=== PATIENT | female | born 1950 | race Caucasian/White ===

== ENCOUNTER 2017-12-07 01:59 | Outpatient (CLI) | payer MEDICARE, MEDICAID, SELFPAY ==
[2017-12-07 14:42] LABS: ALT 26 U/L (12-78); AST 18 U/L (15-37); Alkaline Phosphatase 108 U/L (46-116); Anion Gap 10.1 mmol/L (3-11); BUN 8 mg/dL (7-18); Bilirubin, Total 0.7 mg/dL (0.2-1.0); CO2 28.9 mmol/L (21.0-32.0); CREATININE 0.68 mg/dL (0.55-1.02); Calcium 9.3 mg/dL (8.5-10.1); Chloride 100 mmol/L (98-107); Glucose 83 mg/dL (70-100); Potassium 4.5 mmol/L (3.5-5.1); Sodium 139 mmol/L (136-145); Total Protein 7.3 g/dL (6.4-8.2)
[2017-12-07 15:02] LABS: Cholesterol 179 mg/dL (50-200); HDL Cholesterol 53 mg/dL (40-60); LDL CHOLESTEROL 110 mg/dL (<100); Triglyceride 126 mg/dL (30-150)
== END 2017-12-07 02:19 ==
PROVIDERS: PCP Family Medicine; Visit Provider Family Medicine
DX: E78.5 Hyperlipidemia, unspecified (principal); E03.9 Hypothyroidism, unspecified
CPT/HCPCS: 36415; 80053; 80061; 83721; 84443

== ENCOUNTER 2018-02-06 02:05 | Outpatient (CLI) | payer MEDICARE, MEDICAID, SELFPAY ==
[2018-02-06 11:49] LABS: TSH 1.63 uIU/mL (0.358-3.74)
== END 2018-02-06 02:25 ==
PROVIDERS: PCP Family Medicine; Visit Provider Family Medicine
DX: E03.9 Hypothyroidism, unspecified (principal)
CPT/HCPCS: 36415; 84443

== ENCOUNTER 2018-06-01 09:32 | Emergency (ER) | payer MEDICARE, MEDICAID, SELFPAY ==
[2018-06-01 09:36] VITALS: BP 143/85; PULSE 82; RESP 18; TEMP 36.7; O2SAT 97
[2018-06-01 09:40] VITALS: RESP 18
--- NOTE | 2018-06-01 09:41 | W.ED.GENAD ---
Discharge Plan Disposition Patient Disposition: HOME Condition: Stable Discharge Details Chief Complaint: Dizzy/Sync Clinical Impression: Vertigo, Otitis media Primary Care Provider: Dinorah Santamaria ED Provider: Meron Agosto Home Meds and New Rx's Prescriptions: New clindamycin HCl 300 mg capsule 300 mg PO TID Qty: 21 RF: 0 Continued levothyroxine 88 mcg capsule 88 mcg PO DAILY Qty: 90 RF: 2 pramipexole [Mirapex] 0.5 mg tablet 0.5 mg PO HS Qty: 90 RF: 4 benzonatate [Tessalon Perles] 100 mg capsule 100 mg PO TID PRN (Reason: cough) Qty: 30 RF: 0 ranitidine HCl 300 mg tablet 300 mg PO DAILY Qty: 90 RF: 4 escitalopram oxalate 20 mg tablet 20 mg PO DAILY Qty: 90 RF: 2 Discharge Instructions Instructions: Vertigo (ED), Otitis Media (ED) Additional Instructions: You continue to have a left ear infection, please take clindamycin as prescribed. Even if symptoms improve please please take the entire course. Please take probiotic while on the antibiotics. In regard to your dizziness, please perform the Monique-Daroff maneuvers 3 times a day for the next 3 weeks. Attached is instructions on how to perform this. You should do 5 cycles during each time performing the exercises In regard to your findings in your neurologic exam, you will need follow-up with neurology. An outpatient MRI will be ordered and he will follow-up with Dr. Noland, neurologist. She is advised to begin taking an 81 mg aspirin daily. If you develop headache, visual changes, weakness, change in your speech or other new/worsening symptoms please seek care urgently once again. Should hear from primary care office in regard to the outpatient MRI, if you do not hear from them please call the number listed below Referrals: Dinorah Santamaria MD [Primary Care Provider] - Maddy Roberts MD [ [facility]FF [facility]YSICIAN] - Discharge Data Discharge Date/Time-TO BE ENTERED AT DEPARTURE: 06/01/18 12:21 Medical Decision Making Patient 67-year-old female presenting today with chief complaint of dizziness. She reports that she has had intermittent episodes of dizziness particularly with movement for the past week. Reports that she first noted it when she rolled over in bed. Reports she was treated for a left otitis media by her primary care approximately 2 weeks ago. She reports the discomfort she was experiencing at that time has resolved. Primary care and noted discharge in the ear which the patient states has resolved. She denies any headache, visual changes. States that occasionally she has stomach upset with the episodes of dizziness. Reports that she did increase her Lexapro from 20 mg daily to 30 mg daily and initially had attributed her dizziness to this. Has completely stopped taking the Lexapro since the onset of symptoms. Describes her dizziness as the room spinning. Denies any head trauma. Patient is not an active smoker. No recent travel. No change in other medications recently. On exam, patient appears concerned but no acute distress. She does have fluid noted behind the left eardrum with green discharge in the canal. No perforation in the tympanic membrane is visualized although the lower right side is not visualized. During the Windsor-Hallpike exam, horizontal nystagmus is noted towards the right with associated dizziness experienced by the patient. This resolved shortly after sitting back in an upright position. Also noted on exam was the patient's inability to touch her nose with the right index finger during finger to nose test. She routinely missed going just left of the nose and touching the left cheek. This was normal on the left side. Heel to rivera was normal on both sides, reflexes and strength intact. If any neuro exam is unremarkable. EKG reviewed by myself and Dr. Martini with no acute ischemic findings or other acute abnormalities noted. Patient has normal sinus rhythm with a rate of 75. While the horizontal nystagmus and the patient's symptoms are most consistent with vertigo, the patient having an abnormal finger to nose test has been wanting to evaluate further with imaging. Will obtain a CT and laboratory evaluation. Discussed this plan with the patient is in agreement. Also treat the patient with meclizine for continued dizziness. No shortness of breath, chest pain, EKG changes I have low suspicion for cardiac etiology or pulmonary embolism. Spoke with radiologist who advised that CT of head is negative. I did call back asking about area on posterior right which he advised was typical Laboratory evaluation without significant abnormality. Consulted with Dr. Hernández regarding the patients vertigo and abnormal neuro exam. We discussed CT. She advised that the symptoms are likely not from a stroke but she would advise an outpatient MRI and beginning the patient on a 81mg aspirin. She advised having the patient preform Monique-Daroff exercises three times per day for the next 3 weeks. She advised that this will work for her vertigo over the next 7-10 days. Discussed this with the patient who is in agreement with this plan. she was given strict return precautions. Feels that she is able to do exercises at home. Contacted primary care and advised that MRI would like to be ordered, discussed her recent treatment for an ear infection. Has infection February the patient was treated for an ear infection at which time she was treated with Augmentin. The patient continues to have green discharge and findings consistent with a left otitis media, she will be treated with further antibiotics. As she was previously treated with Augmentin, will use Cipro. Advised probiotic. She will begin ASA. Patient was given education on how to preform home exercises. She was given strict return precuations. film sound coordinator will ensure continued care with outpatient MRI and f/u with neurologist. All of her questions adn concerns were addressed, she is in agreement with this plan. Patient was advised to not drive, reprots that she does not drive at baseline, will not opperatie machinery HPI General Mode of arrival: ambulatory. Date/Time Provider Initiated Documentation: 06/01/18 09:40. Limitations to Documentation: no limitations. Information obtained by: patient, family and RN notes reviewed. History of Present Illness 67 year old F presents to the emergency department with the chief complaint of dizziness, described as severe, Patient started experiencing this week(s) (1) and it has been intermittent. Immobilization improves symptom(s), Movement worsens symptoms . Patient notes no other symptoms.. Patient did receive the following treatments prior to arrival, none Related Data Home Medications Medication Instructions Recorded Confirmed ranitidine 300 mg tablet 300 mg PO DAILY #90 tab-cap 01/30/18 06/01/18 benzonatate 100 mg capsule 100 mg PO TID PRN #30 cap 03/06/18 06/01/18 levothyroxine 88 mcg capsule 88 mcg PO DAILY #90 cap 03/06/18 06/01/18 pramipexole 0.5 mg tablet 0.5 mg PO HS #90 tab 03/06/18 06/01/18 escitalopram 20 mg tablet 20 mg PO DAILY #90 tab-cap 05/30/18 06/01/18 clindamycin HCl 300 mg PO TID #21 cap 06/01/18 Previous Rx's Medication Instructions Recorded ranitidine 300 mg tablet 300 mg PO DAILY #90 tab-cap 01/30/18 benzonatate 100 mg capsule 100 mg PO TID PRN #30 cap 03/06/18 levothyroxine 88 mcg capsule 88 mcg PO DAILY #90 cap 03/06/18 pramipexole 0.5 mg tablet 0.5 mg PO HS #90 tab 03/06/18 escitalopram 20 mg tablet 20 mg PO DAILY #90 tab-cap 05/30/18 clindamycin HCl 300 mg PO TID #21 cap 06/01/18 Allergies Allergy/AdvReac Type Severity Reaction Status Date / Time No Known Allergies Allergy Unverified 06/01/18 09:52 General Stated Complaint: Dizzy/Sync DULCE: 3 Review of Systems Constitutional Reports as per HPI, Denies chills, Denies excessive sweating, Denies fever(s), Denies frequent falls, Denies headache(s), Denies lethargy, Denies poor appetite and Denies weakness Eyes Denies change in vision and Denies loss of vision ENT Reports dizziness, Denies otalgia and Denies headache(s) Cardiovascular Reports as per HPI, Denies chest pain, Denies chest pain at rest, Denies chest pain with activity, Denies dyspnea and Denies dyspnea on exertion Respiratory Reports as per HPI, Denies chest congestion, Denies cough, Denies pain on inspiration, Denies pain with cough, Denies dyspnea, Denies dyspnea on exertion and Denies wheezing Gastrointestinal Reports as per HPI, Denies abdominal pain, Denies diarrhea, Reports nausea (occasionally with dizziness) and Denies vomiting Musculoskeletal Reports as per HPI, Denies back pain and Denies numbness Integumentary/Breasts Reports as per HPI and Denies rash Neurologic Reports as per HPI, Reports dizziness, Denies frequent falls, Denies headache(s), Denies lack of coordination, Denies focal weakness, Denies loss of vision, Denies memory loss, Denies numbness, Reports restless legs, Denies sensory deficit, Denies tremor(s) and Denies weakness Psychiatric Denies memory loss Endocrine Denies excessive sweating Allergic/Immunologic Denies wheezing [facility] Medical History Abnormal CT of the abdomen Chronic alcohol dependence, continuous Diverticulitis Hyperlipidemia Hypothyroidism Weight loss, unintentional Surgical History Colectomy (~2010) Colonoscopy - MAC (09/28/16) Cystoscopy (06/10/16) EGD - MAC (09/28/16) Hernia Repair, Incisional Oophrectomy, Left Tonsillectomy and adenoidectomy Social History Smoking/Tobacco Use Status: Former Tobacco Use Quit Date: 04/18/18 Alcohol Intake: current Alcohol type: beer Drug use: Never Do you feel safe at home: Yes Do you feel safe in your relationship?: Yes Exam Const General: cooperative, healthy appearing, comfortable, no acute distress and well developed Nutritional Appearance: average body habitus and well nourished Orientation: alert, awake and oriented x3 HENMT Head: normal to inspection Ears: hearing grossly normal bilaterally Mouth: moist mucous membranes Eyes General: appearance normal, both eyes and all related structures Visual Ngo: normal visual ngo by confrontation Alignment and Position: alignment normal Periorbital: periorbital findings normal Eyelids: eyelids normal Pupils: PERRL and normal by confrontation EOM: EOM intact bilaterally Chest Chest: normal inspection of the chest, normal palpation of entire chest wall and no crepitus Resp Effort & Inspection: normal respiratory effort, able to speak in complete sentences and no respiratory distress Auscultation: clear to auscultation bilaterally, no rales, no rhonchi and no wheezes Cardio Rate: regular rate Rhythm: regular rhythm Heart Sounds: S1 normal and S2 normal GI Inspection: normal to inspection, no edema and non-distended Palpation: soft, no hepatosplenomegaly, not firm, no guarding, not rigid and nontender Auscultation: normal bowel sounds Skin General skin exam: no rashes or lesions noted Trauma: no lacerations or abrasions Neuro General: alert, awake, oriented x3, gait normal, tone normal, moves all extremities, normal light touch, pain and propioception, no meningeal signs and no focal motor deficits Cranial Nerves: CN's II-XI intact bilaterally Cognition: normal cognition Speech: speech normal Gait: normal gait Motor: muscle tone normal throughout, strength 5/5 throughout, no pronator drift, no movement abnormalities noted and no fasciculations Sensory Exam: no sensory deficits noted DTR's: Rt Triceps: 2+, Lt Triceps: 2+, Rt Biceps: 2+, Lt Biceps: 2+, Rt Patellar: 2+, Lt Patellar: 2+, Rt Ankle: 2+ and Lt Ankle: 2+ Coordination: [id number] test abnormal (patient touches left cheek with right hand, normal on left side), [id number] test normal, Romberg test normal, Does not sway with eyes open and rapid alternating movement UE normal Extrem General: normal to inspection, normal capillary refill, no pedal edema, no calf tenderness and normal gait Psych Appearance: grossly normal and well kempt Mental Status: mental status grossly normal Speech and Movement: speech and movement normal Course Vital Signs Temperature 36.7 C 06/01/18 09:36 Pulse 82 06/01/18 09:36 Respiratory Rate 18 06/01/18 09:36 Blood Pressure 143/85 H 06/01/18 09:36 Pulse Oximetry 97 06/01/18 09:36 Temperature 36.7 C 06/01/18 09:36 Temperature Source Skin 06/01/18 09:36 Pulse 82 06/01/18 09:36 Respiratory Rate 18 06/01/18 09:36 Blood Pressure 143/85 H 06/01/18 09:36 Blood Pressure Position Sitting 06/01/18 09:36 Pulse Oximetry 97 06/01/18 09:36 Oxygen Delivery Method Room Air 06/01/18 09:36 Oxygen Flow Rate 0 06/01/18 09:36 Pain Level 0 06/01/18 09:36
--- NOTE | 2018-06-01 10:02 | ED.GENADUL_ITS ---
Discharge Plan Disposition Patient Disposition: HOME Condition: Stable Discharge Details Chief Complaint: Dizzy/Sync Clinical Impression: Vertigo, Otitis media Primary Care Provider: Dinorah Santamaria ED Provider: Meron Agosto Home Meds and New Rx's Prescriptions: New clindamycin HCl 300 mg capsule 300 mg PO TID Qty: 21 RF: 0 Continued levothyroxine 88 mcg capsule 88 mcg PO DAILY Qty: 90 RF: 2 pramipexole [Mirapex] 0.5 mg tablet 0.5 mg PO HS Qty: 90 RF: 4 benzonatate [Tessalon Perles] 100 mg capsule 100 mg PO TID PRN (Reason: cough) Qty: 30 RF: 0 ranitidine HCl 300 mg tablet 300 mg PO DAILY Qty: 90 RF: 4 escitalopram oxalate 20 mg tablet 20 mg PO DAILY Qty: 90 RF: 2 Discharge Instructions Instructions: Vertigo (ED), Otitis Media (ED) Additional Instructions: You continue to have a left ear infection, please take clindamycin as prescribed. Even if symptoms improve please please take the entire course. Please take probiotic while on the antibiotics. In regard to your dizziness, please perform the Monique-Daroff maneuvers 3 times a day for the next 3 weeks. Attached is instructions on how to perform this. You should do 5 cycles during each time performing the exercises In regard to your findings in your neurologic exam, you will need follow-up with neurology. An outpatient MRI will be ordered and he will follow-up with Dr. Noland, neurologist. She is advised to begin taking an 81 mg aspirin daily. If you develop headache, visual changes, weakness, change in your speech or other new/worsening symptoms please seek care urgently once again. Should hear from primary care office in regard to the outpatient MRI, if you do not hear from them please call the number listed below Referrals: Dinorah Santamaria MD [Primary Care Provider] - Maddy Roberts MD [ [facility]YSICIAN] - Discharge Data Discharge Date/Time-TO BE ENTERED AT DEPARTURE: 06/01/18 12:21 Medical Decision Making Patient 67-year-old female presenting today with chief complaint of dizziness. She reports that she has had intermittent episodes of dizziness particularly with movement for the past week. Reports that she first noted it when she rolled over in bed. Reports she was treated for a left otitis media by her primary care approximately 2 weeks ago. She reports the discomfort she was experiencing at that time has resolved. Primary care and noted discharge in the ear which the patient states has resolved. She denies any headache, visual changes. States that occasionally she has stomach upset with the episodes of dizziness. Reports that she did increase her Lexapro from 20 mg daily to 30 mg daily and initially had attributed her dizziness to this. Has completely stopped taking the Lexapro since the onset of symptoms. Describes her dizziness as the room spinning. Denies any head trauma. Patient is not an active smoker. No recent travel. No change in other medications recently. On exam, patient appears concerned but no acute distress. She does have fluid noted behind the left eardrum with green discharge in the canal. No perforation in the tympanic membrane is visualized although the lower right side is not visualized. During the [place] exam, horizontal nystagmus is noted towards the right with associated dizziness experienced by the patient. This resolved shortly after sitting back in an upright position. Also noted on exam was the patient's inability to touch her nose with the right index finger during finger to nose test. She routinely missed going just left of the nose and touching the left cheek. This was normal on the left side. Heel to rivera was normal on both sides, reflexes and strength intact. If any neuro exam is unremarkable. EKG reviewed by myself and Dr. Martini with no acute ischemic findings or other acute abnormalities noted. Patient has normal sinus rhythm with a rate of 75. While the horizontal nystagmus and the patient's symptoms are most consistent with vertigo, the patient having an abnormal finger to nose test has been wanting to evaluate further with imaging. Will obtain a CT and laboratory evaluation. Discussed this plan with the patient is in agreement. Also treat the patient with meclizine for continued dizziness. No shortness of breath, chest pain, EKG changes I have low suspicion for cardiac etiology or pulmonary embolism. Spoke with radiologist who advised that CT of head is negative. I did call back asking about area on posterior right which he advised was typical Laboratory evaluation without significant abnormality. Consulted with Dr. Hernández regarding the patients vertigo and abnormal neuro exam. We discussed CT. She advised that the symptoms are likely not from a stroke but she would advise an outpatient MRI and beginning the patient on a 81mg aspirin. She advised having the patient preform Monique-Daroff exercises three times per day for the next 3 weeks. She advised that this will work for her vertigo over the next 7-10 days. Discussed this with the patient who is in agreement with this plan. she was given strict return precautions. Feels that she is able to do exercises at home. Contacted primary care and advised that MRI would like to be ordered, discussed her recent treatment for an ear infection. Has infection February the patient was treated for an ear infection at which time she was treated with Augmentin. The patient continues to have green discharge and findings consistent with a left otitis media, she will be treated with further antibiotics. As she was previously treated with Augmentin, will use Cipro. Advised probiotic. She will begin ASA. Patient was given education on how to preform home exercises. She was given strict return precuations. patient day coordinator will ensure continued care with outpatient MRI and f/u with neurologist. All of her questions adn concerns were addressed, she is in agreement with this plan. Patient was advised to not drive, reprots that she does not drive at baseline, will not opperatie machinery HPI General Mode of arrival: ambulatory . Date/Time Provider Initiated Documentation: 06/01/18 09:40 . Limitations to Documentation: no limitations . Information obtained by: patient, family and RN notes reviewed . History of Present Illness 67 year old F presents to the emergency department with the chief complaint of dizziness, described as severe, Patient started experiencing this week(s) (1) and it has been intermittent. Immobilization improves symptom(s), Movement worsens symptoms . Patient notes no other symptoms.. Patient did receive the following treatments prior to arrival, none Related Data Home Medications Medication Instructions Recorded Confirmed ranitidine 300 mg tablet 300 mg PO DAILY #90 tab-cap 01/30/18 06/01/18 benzonatate 100 mg capsule 100 mg PO TID PRN #30 cap 03/06/18 06/01/18 levothyroxine 88 mcg capsule 88 mcg PO DAILY #90 cap 03/06/18 06/01/18 pramipexole 0.5 mg tablet 0.5 mg PO HS #90 tab 03/06/18 06/01/18 escitalopram 20 mg tablet 20 mg PO DAILY #90 tab-cap 05/30/18 06/01/18 clindamycin HCl 300 mg PO TID #21 cap 06/01/18 Previous Rx's Medication Instructions Recorded ranitidine 300 mg tablet 300 mg PO DAILY #90 tab-cap 01/30/18 benzonatate 100 mg capsule 100 mg PO TID PRN #30 cap 03/06/18 levothyroxine 88 mcg capsule 88 mcg PO DAILY #90 cap 03/06/18 pramipexole 0.5 mg tablet 0.5 mg PO HS #90 tab 03/06/18 escitalopram 20 mg tablet 20 mg PO DAILY #90 tab-cap 05/30/18 clindamycin HCl 300 mg PO TID #21 cap 06/01/18 Allergies Allergy/AdvReac Type Severity Reaction Status Date / Time No Known Allergies Allergy Unverified 06/01/18 09:52 General Stated Complaint: Dizzy/Sync DULCE: 3 Review of Systems Constitutional Reports as per HPI, Denies chills, Denies excessive sweating, Denies fever(s), Denies frequent falls, Denies headache(s), Denies lethargy, Denies poor appetite and Denies weakness Eyes Denies change in vision and Denies loss of vision ENT Reports dizziness, Denies otalgia and Denies headache(s) Cardiovascular Reports as per HPI, Denies chest pain, Denies chest pain at rest, Denies chest pain with activity, Denies dyspnea and Denies dyspnea on exertion Respiratory Reports as per HPI, Denies chest congestion, Denies cough, Denies pain on inspiration, Denies pain with cough, Denies dyspnea, Denies dyspnea on exertion and Denies wheezing Gastrointestinal Reports as per HPI, Denies abdominal pain, Denies diarrhea, Reports nausea (occasionally with dizziness) and Denies vomiting Musculoskeletal Reports as per HPI, Denies back pain and Denies numbness Integumentary/Breasts Reports as per HPI and Denies rash Neurologic Reports as per HPI, Reports dizziness, Denies frequent falls, Denies headache(s), Denies lack of coordination, Denies focal weakness, Denies loss of vision, Denies memory loss, Denies numbness, Reports restless legs, Denies sensory deficit, Denies tremor(s) and Denies weakness Psychiatric Denies memory loss Endocrine Denies excessive sweating Allergic/Immunologic Denies wheezing [facility] Medical History Abnormal CT of the abdomen Chronic alcohol dependence, continuous Diverticulitis Hyperlipidemia Hypothyroidism Weight loss, unintentional Surgical History Colectomy (~2010) Colonoscopy - MAC (09/28/16) Cystoscopy (06/10/16) EGD - MAC (09/28/16) Hernia Repair, Incisional Oophrectomy, Left Tonsillectomy and adenoidectomy Social History Smoking/Tobacco Use Status: Former Tobacco Use Quit Date: 04/18/18 Alcohol Intake: current Alcohol type: beer Drug use: Never Do you feel safe at home: Yes Do you feel safe in your relationship?: Yes Exam Const General: cooperative, healthy appearing, comfortable, no acute distress and well developed Nutritional Appearance: average body habitus and well nourished Orientation: alert, awake and oriented x3 HENMT Head: normal to inspection Ears: hearing grossly normal bilaterally Mouth: moist mucous membranes Eyes General: appearance normal, both eyes and all related structures Visual Ngo: normal visual ngo by confrontation Alignment and Position: alignment normal Periorbital: periorbital findings normal Eyelids: eyelids normal Pupils: PERRL and normal by confrontation EOM: EOM intact bilaterally Chest Chest: normal inspection of the chest, normal palpation of entire chest wall and no crepitus Resp Effort & Inspection: normal respiratory effort, able to speak in complete sentences and no respiratory distress Auscultation: clear to auscultation bilaterally, no rales, no rhonchi and no wheezes Cardio Rate: regular rate Rhythm: regular rhythm Heart Sounds: S1 normal and S2 normal GI Inspection: normal to inspection, no edema and non-distended Palpation: soft, no hepatosplenomegaly, not firm, no guarding, not rigid and nontender Auscultation: normal bowel sounds Skin General skin exam: no rashes or lesions noted Trauma: no lacerations or abrasions Neuro General: alert, awake, oriented x3, gait normal, tone normal, moves all extremities, normal light touch, pain and propioception, no meningeal signs and no focal motor deficits Cranial Nerves: CN's II-XI intact bilaterally Cognition: normal cognition Speech: speech normal Gait: normal gait Motor: muscle tone normal throughout, strength 5/5 throughout, no pronator drift, no movement abnormalities noted and no fasciculations Sensory Exam: no sensory deficits noted DTR's: Rt Triceps: 2+, Lt Triceps: 2+, Rt Biceps: 2+, Lt Biceps: 2+, Rt Patellar: 2+, Lt Patellar: 2+, Rt Ankle: 2+ and Lt Ankle: 2+ Coordination: [id number] test abnormal (patient touches left cheek with right hand, normal on left side), [id number] test normal, Romberg test normal, Does not sway with eyes open and rapid alternating movement UE normal Extrem General: normal to inspection, normal capillary refill, no pedal edema, no calf tenderness and normal gait Psych Appearance: grossly normal and well kempt Mental Status: mental status grossly normal Speech and Movement: speech and movement normal Course Vital Signs Temperature 36.7 C 06/01/18 09:36 Pulse 82 06/01/18 09:36 Respiratory Rate 18 06/01/18 09:36 Blood Pressure 143/85 H 06/01/18 09:36 Pulse Oximetry 97 06/01/18 09:36 Temperature 36.7 C 06/01/18 09:36 Temperature Source Skin 06/01/18 09:36 Pulse 82 06/01/18 09:36 Respiratory Rate 18 06/01/18 09:36 Blood Pressure 143/85 H 06/01/18 09:36 Blood Pressure Position Sitting 06/01/18 09:36 Pulse Oximetry 97 06/01/18 09:36 Oxygen Delivery Method Room Air 06/01/18 09:36 Oxygen Flow Rate 0 06/01/18 09:36 Pain Level 0 06/01/18 09:36
[2018-06-01] MEDS: Normal Saline 1,000 ML 150 ML IV (10:40)
[2018-06-01] MEDS: Meclizine 25 MG TAB PO (10:40)
[2018-06-01 10:53] LABS: Abs Immature Grans 0.03 k/cumm (0.0-0.09); Absolute Basophil Count 0.02 k/cumm (0.0-0.2); Absolute Eosinophil Count 0.17 k/cumm (0.0-0.7); Absolute Lymphocyte Count 1.83 k/cumm (1.2-3.4); Absolute Monocyte Count 0.33 k/cumm (0.11-0.7); Absolute Neutrophil Count 2.67 k/cumm (1.2-6.7); Basophils % 0.4; Eosinophils % 3.4; HCT 47.2 % (36.0-46.0); Immature Grans % 0.6; Lymphocytes % 36.2; Mean Corp. HGB Concentration 31.8 g/dL (32.0-36.0); Mean Corpuscular Hemoglobin 28.7 pg (27.0-33.0); Mean Corpuscular Volume 90.4 fL (80-95); Mean Platelet Volume 9.6 fL (8.0-11.0); Monocytes % 6.5; Neutrophils % 52.9; Platelet Count 229 x1000/uL (130-400); RBC 5.22 m/cumm (4.00-5.20); RBC Distribution Width 13.6 % (11.7-14.6); White Blood Cell Count 5.05 k/cumm (4.4-10.8)
--- NOTE | 2018-06-01 11:14 | DI.RAD_ITS ---
SYMPTOMS/DIAGNOSIS: DIZZINESS CRANIAL CT (WITHOUT CONTRAST): A noncontrast cranial CT was performed. The ventricular system is normal in appearance. There is no evidence of an intracranial mass lesion. There is no evidence of a subdural or epidural hematoma. No focal areas of decreased attenuation are seen. CONCLUSION: Normal noncontrast Cranial CT.
[2018-06-01 11:22] LABS: ALT 30 U/L (12-78); AST 18 U/L (15-37); Albumin 3.9 g/dL (3.4-5.0); Alkaline Phosphatase 90 U/L (46-116); Anion Gap 6.9 mmol/L (3-11); BUN 10 mg/dL (7-18); Bilirubin, Total 0.5 mg/dL (0.2-1.0); CO2 31.1 mmol/L (21.0-32.0); CREATININE 0.55 mg/dL (0.55-1.02); Calcium 8.8 mg/dL (8.5-10.1); Chloride 100 mmol/L (98-107); Glucose 85 mg/dL (70-100); Magnesium 2.2 mg/dL (1.8-2.4); Potassium 3.9 mmol/L (3.5-5.1); Sodium 138 mmol/L (136-145); TSH 4.89 uIU/mL (0.358-3.74); Total Protein 7.7 g/dL (6.4-8.2)
[2018-06-01 11:33] LABS: Troponin I < 0.02 ng/mL (0.00-0.06)
[2018-06-01 12:07] LABS: FREE T4 1.12 ng/dL (0.76-1.46)
[2018-06-01 12:20] VITALS: BP 143/85; PULSE 82; RESP 18; TEMP 36.7; O2SAT 97
--- NOTE | 2018-06-02 10:32 | PDOC.ERCMPRO ---
Care Management Progress Note 06/02-Meron ZAPATA requested assistance with an outpatient MRI. Meron has spoken to the PCP office ([facility]). Please see provider note. Referral faxed to [facility] this am requesting they order the MRI.
--- NOTE | 2018-06-02 10:33 | CMPROGNOTE_ITS ---
Care Management Progress Note 06/02-Meron ZAPATA requested assistance with an outpatient MRI. Meron has spoken to the PCP office ([facility]). Please see provider note. Referral faxed to [facility] this am requesting they order the MRI.
== END 2018-06-01 12:21 | disposition home or self-care (01) ==
PROVIDERS: Emergency Provider Physician Assistant; PCP Family Medicine
DX: R42 Dizziness and giddiness (principal); H66.92 Otitis media, unspecified, left ear
CPT/HCPCS: 36415; 80053; 93005; 96360; 96361; 99285; 70450; 83735; 84439; 84443; 84484; 85025; 93010

== ENCOUNTER 2018-08-28 01:41 | Outpatient (CLI) | payer MEDICARE, SELFPAY ==
[2018-08-28 12:47] LABS: TSH 0.18 uIU/mL (0.358-3.74)
== END 2018-08-28 02:01 ==
PROVIDERS: PCP Family Medicine; Visit Provider Family Medicine
DX: E03.9 Hypothyroidism, unspecified (principal)
CPT/HCPCS: 36415; 84443

== ENCOUNTER 2018-10-03 02:28 | Outpatient (CLI) | payer MEDICARE, MEDICAID, SELFPAY ==
[2018-10-03 12:44] LABS: TSH 1.39 uIU/mL (0.36-3.74)
== END 2018-10-03 02:48 ==
PROVIDERS: PCP Family Medicine; Visit Provider Family Medicine
DX: E03.9 Hypothyroidism, unspecified (principal)
CPT/HCPCS: 36415; 84443

== ENCOUNTER 2020-02-14 03:05 | Outpatient (CLI) | payer MEDICARE, SELFPAY ==
[2020-02-14 12:37] LABS: ALT 21 U/L (14-59); AST 18 U/L (15-37); Albumin 4.1 g/dL (3.4-5.0); Alkaline Phosphatase 94 U/L (46-116); Anion Gap 7.7 mmol/L (3-11); BUN 6 mg/dL (7-18); Bilirubin, Total 0.8 mg/dL (0.2-1.0); CO2 30.3 mmol/L (21.0-32.0); CREATININE 0.73 mg/dL (0.55-1.02); Calculated LDL 103 mg/dL (<100); Chloride 99 mmol/L (98-107); Cholesterol 176 mg/dL (<200); Glucose 76 mg/dL (74-106); HDL Cholesterol 59 mg/dL (40-60); Sodium 137 mmol/L (136-145); TSH 0.98 uIU/mL (0.36-3.74); Total Protein 7.4 g/dL (6.4-8.2); Triglyceride 71 mg/dL (<150)
== END 2020-02-14 03:25 ==
PROVIDERS: PCP Family Medicine; Visit Provider Family Medicine
DX: E78.5 Hyperlipidemia, unspecified (principal); E03.9 Hypothyroidism, unspecified
CPT/HCPCS: 36415; 80053; 80061; 84443

== ENCOUNTER 2021-07-28 02:02 | Outpatient (CLI) | payer OTHER, MEDICAID, SELFPAY | END 2021-07-28 02:03 | disposition home or self-care (01) | LOC: LOS 02:02 | PROVIDERS: PCP Family Medicine; Visit Provider Family Medicine | DX: E03.9 Hypothyroidism, unspecified (principal) | CPT/HCPCS: 36415; 84443 ==

== ENCOUNTER 2021-11-25 14:13 | Outpatient (REF) | payer OTHER, MEDICAID, SELFPAY | END 2021-11-25 14:14 | disposition home or self-care (01) | LOC: LBN 14:13 | PROVIDERS: PCP Family Medicine; Visit Provider Nurse Practitioner Family | DX: L03.115 Cellulitis of right lower limb (principal); L98.8 Other specified disorders of the skin and subcutaneous tissue | CPT/HCPCS: 87077; 87070; 87205 ==

== ENCOUNTER 2022-06-04 01:19 | Outpatient (CLI) | payer OTHER, SELFPAY | END 2022-06-04 01:20 | disposition home or self-care (01) | LOC: LOS 01:19 | PROVIDERS: PCP Family Medicine; Visit Provider Family Medicine | DX: E03.9 Hypothyroidism, unspecified (principal) | CPT/HCPCS: 36415; 84443 ==

== ENCOUNTER 2022-08-24 09:21 | Emergency (ER) | payer OTHER, MEDICAID, SELFPAY ==
--- NOTE | 2022-08-24 09:15 | RT.EKG_ITS ---
APPROVED REPORT Exam: Resting ECG Reason for Exam: dizziness Patient Location: E HR:80 bpm ECG Measurements Heart Rate 80 AXIS WA 157 P 86 QRSd 102 QRS 57 QT 382 T 57 QTc 443 Conclusion Sinus rhythm...normal P axis, V-rate 60- 99
[2022-08-24 09:28] VITALS: BP 147/74; PULSE 82; RESP 18; TEMP 36.8; O2SAT 96
--- NOTE | 2022-08-24 09:55 | W.ED.GENAD ---
Discharge Plan Disposition Patient Disposition: Home Condition: Stable Discharge Details Clinical Impression: Acute constipation Primary Care Provider: Fatou Stokes ED Provider: Desmond Kaplan Home Meds and New Rx's Prescriptions: New sennosides [Senokot] 8.6 mg tablet 17.2 mg PO QD-BID PRN (Reason: constipation) Qty: 30 0RF Fleet Enema 19-7 gram/118 mL enema 118 ml VA ONCE Qty: 532 0RF Continued hydrocortisone 2.5 % ointment 1 applic TP BID Qty: 453.6 0RF Rx Instructions: apply in thin layer twice a day on the face rash until it's gone bupropion HCl 75 mg tablet 75 mg PO DAILY Qty: 90 1RF sertraline 100 mg tablet 100 mg PO DAILY Qty: 90 3RF pravastatin 20 mg tablet 20 mg PO QPM Qty: 90 3RF pramipexole 0.75 mg tablet 0.75 mg PO QHS Qty: 90 4RF Rx Instructions: take one tablet at bedtime famotidine 20 mg tablet 20 mg PO DAILY PRN (Reason: gerd) Qty: 90 3RF levothyroxine 88 mcg tablet 88 mcg PO DAILY Qty: 90 3RF Discharge Instructions Instructions: Constipation (ED) Additional Instructions: Please drink plenty of fluids to stay hydrated. Please use senna and enema as prescribed. If symptoms do not improve as expected, additional diagnostic testing and treatment may be necessary. Please contact your primary care physician to arrange follow-up. Call tomorrow. Return to the ER immediately for any worsening or new concerning symptoms. Referrals: Fatou Stokes MD [Primary Care Provider] - Medical Decision Making 72-year-old female here with complaint of no bowel movement over the past 5 days. Patient has had intermittent abdominal discomfort. No pain currently. Abdominal exam is benign. She has no tenderness. Suspect functional constipation although patient does have significant surgical history -had severe diverticulitis requiring colectomy and colostomy, status post remote reversal. I do not think she has acute bowel obstruction given benign exam and history. Plan to trial bowel stimulant and laxative. Plan for outpatient follow-up with PCP should symptoms not improve over the next couple days. Patient was encouraged to return immediately should have any worsening or new concerning symptoms. HPI General Mode of arrival: ambulatory. Date/Time Provider Initiated Documentation: 08/24/22 09:34. Limitations to Documentation: no limitations. Information obtained by: patient. HPI Narrative: 72-year-old female with history of diverticulitis in the past requiring colostomy, status post reversal remotely, here with chief complaint of constipation. Patient states she has had no bowel movement the past 5 days. She is typically pretty regular having bowel movements every 1 to 2 days. Patient does note some intermittent abdominal discomfort which she attributes to constipation. She has no pain at this time. She has been eating and drinking normally and has no associated nausea or vomiting. No preceding melena, bright red blood per rectum, or diarrhea. Patient has tried a dose of [id number] stool softener. This did not provide relief. Patient does also note on review of systems brief episodes of mild dizziness that occurred a couple weeks ago. Related Data Home Medications Medication Instructions Recorded Confirmed hydrocortisone 2.5 % topical 1 applic topical BID #453.6 grams 04/04/19 08/24/22 ointment levothyroxine 88 mcg tablet 88 mcg PO DAILY #90 tabs 03/22/22 08/24/22 bupropion HCl 75 mg tablet 75 mg PO DAILY #90 tabs 07/09/22 08/24/22 famotidine 20 mg tablet 20 mg PO DAILY PRN gerd #90 tabs 07/09/22 08/24/22 pramipexole 0.75 mg tablet 0.75 mg PO QHS #90 tabs 07/09/22 08/24/22 pravastatin 20 mg tablet 20 mg PO QPM #90 tabs 07/09/22 08/24/22 sertraline 100 mg tablet 100 mg PO DAILY #90 tabs 07/09/22 08/24/22 sennosides 8.6 mg tablet (Senokot) 17.2 mg PO QD-BID PRN constipation 08/24/22 #30 tabs sodium phosphates 19 gram-7 118 ml VA ONCE #532 mL 08/24/22 gram/118 mL enema (Fleet Enema) Previous Rx's Medication Instructions Recorded hydrocortisone 2.5 % topical 1 applic topical BID #453.6 grams 04/04/19 ointment levothyroxine 88 mcg tablet 88 mcg PO DAILY #90 tabs 03/22/22 bupropion HCl 75 mg tablet 75 mg PO DAILY #90 tabs 07/09/22 famotidine 20 mg tablet 20 mg PO DAILY PRN gerd #90 tabs 07/09/22 pramipexole 0.75 mg tablet 0.75 mg PO QHS #90 tabs 07/09/22 pravastatin 20 mg tablet 20 mg PO QPM #90 tabs 07/09/22 sertraline 100 mg tablet 100 mg PO DAILY #90 tabs 07/09/22 sennosides 8.6 mg tablet (Senokot) 17.2 mg PO QD-BID PRN constipation 08/24/22 #30 tabs sodium phosphates 19 gram-7 118 ml VA ONCE #532 mL 08/24/22 gram/118 mL enema (Fleet Enema) Allergies Allergy/AdvReac Type Severity Reaction Status Date / Time No Known Allergies Allergy Verified 08/24/22 09:34 General Stated Complaint: Abd Prob DULCE: 3 Review of Systems All systems reviewed & are unremarkable except as noted in HPI and below Constitutional Constitutional: Denies fever(s) Gastrointestinal Gastrointestinal: Reports as per HPI and Denies abdominal pain PFSH All Active Problems Chronic alcohol dependence, continuous (Chronic) 4-5 beers every other day. RLS (restless legs syndrome) (Chronic) Hypothyroidism (Chronic 02/22/14) Hyperlipidemia (Chronic 11/03/11) Depression (Chronic) Anxiety (Chronic) Tobacco use disorder, continuous (Chronic) 55 pack yr hx; declines lung ca screening Financial insecurity (Acute) Acute constipation (Acute) Medical History Abnormal weight loss (10/09/15) normal labs incl. SPEP/ CT abd-pelvic :duodenum+prx.small bowel irreg./inflamm. normal chest xray Micro.Hematuria: : cystoscopy pending normal colonoscopy gastroscopy : duod.inflamm. Microscopic hematuria (05/24/16) normal cystoscopy Surgical History Colectomy (~2010) partial colectomy (rectosigmoid obstruction/ ) Colonoscopy - MAC (09/28/16) Cystoscopy (06/10/16) normal Diverticulitis of large intestine without perforation or abscess without bleeding sigmoid resection + left fallopian tube and ovary (very adherent to colon); ; benign EGD - MAC (09/28/16) Hernia Repair, Incisional Laparoscopic Oophrectomy, Left left tube and ovary; chronic salpingitis and colonic adhesions Tonsillectomy and adenoidectomy Family History Mother No problems noted. Father No problems noted. Sister No problems noted. Sister No problems noted. Sister No problems noted. Brother No problems noted. Brother No problems noted. Brother No problems noted. Son , in 1997 Depression Son , 20 Depression Daughter No problems noted. Social History Smoking/Tobacco Use Status: Former Tobacco Use Quit Date: 04/18/18 Tobacco: How many years used: 55 Quit status: has quit before Second Hand Exposure: Yes Counseling given: provider counseling Smoking risk assessment performed?: Yes Alcohol Intake: current Alcohol Intake frequency: a few times a week Alcohol type: beer Drug use: Never Substance use type: does not use Caregiver/Support person: No Household members: spouse Housing: house Number of Children: 3 number of grandchildren: 8 Education Level: high school Details: finished through 11th grade Do you need help understanding health information?: Never current occupation: homemaker, worked in a farm; Pets and animals: Yes Pets and animals: cat(s) Sexually active: No Do you think of yourself as: straight/heterosexual What is your relationship status?: How often do you talk on the phone with friends or family?: once per week How often do you get together with friends or relatives?: once per week How often do you attend sikh or nondenominational services?: decline to answer Do you belong to any clubs or organized social groups?: no Panel score (0-1 are the most socially isolated patients): 1 What type of physical activity do you participate in: none Traci/Anglican: No preference Special traci needs: No Seatbelt use: always Drive intox or ride w/intox city bus driver: No Do you feel safe at home: Yes Do you feel safe in your relationship?: Yes Exam Const General: cooperative and no acute distress [facility] Mouth: moist mucous membranes Eyes Conjunctivae: normal conjunctivae Sclera: normal sclerae Neck Neck: trachea midline and supple Resp Auscultation: clear to auscultation bilaterally, no rales, no rhonchi and no wheezes Cardio Rate: regular rate and not tachycardic Rhythm: regular rhythm GI Inspection: non-distended Palpation: soft, not firm, no guarding, no hepatosplenomegaly, no masses, not rigid and nontender Auscultation: hypoactive bowel sounds Skin General skin exam: no rashes or lesions noted Neuro General: patient alert, patient awake and tone normal Extrem General: no edema Psych Appearance: grossly normal Mental Status: mental status grossly normal Course Vital Signs Vital signs: Vital Signs Temperature 36.8 C 08/24/22 09:28 Pulse 82 08/24/22 09:28 Respiratory Rate 18 08/24/22 09:28 Blood Pressure 147/74 H 08/24/22 09:28 Pulse Oximetry 96 08/24/22 09:28 Temperature 36.8 C 08/24/22 09:28 Temperature Source Oral 08/24/22 09:28 Pulse 82 08/24/22 09:28 Respiratory Rate 18 08/24/22 09:28 Respiratory Effort Normal, Non-Labored 08/24/22 09:34 Blood Pressure 147/74 H 08/24/22 09:28 Blood Pressure Position Sitting 08/24/22 09:28 Pulse Oximetry 96 08/24/22 09:28 Oxygen Delivery Method Room Air 08/24/22 09:28 Oxygen Flow Rate 0 08/24/22 09:28 PAWSS Have you Been Recently Intoxicated or Drunk Within the Last 30 days?: No Have you Ever Experienced Previous Episodes of Alcohol Withdrawal?: No Have you ever Experienced Withdrawal Seizures?: No Have you ever Experienced Delirium Tremens(DT)s?: No Have you ever undergone Alcohol Rehabilitation Treatment (i.e, inpt ot outpatient treatment programs)?: No Have you ever Experienced Blackouts?: No Have you ever Combined Alcohol with other Downers within the last 90 days?: No Have you ever Combined Alcohol with any other Substance of Abuse during the last 90 days?: No Positive Blood Alcohol level on Presentation? [PCS.BAL]: No Evidence of Increased Autonomic Activity (i.e. HR>120, tremor, sweating, agitation, nausea)?: No Result: 0
[2022-08-24] MEDS: Senna TAB 2 TAB PO (10:24)
== END 2022-08-24 10:16 | disposition home or self-care (01) ==
PROVIDERS: Emergency Provider Student in an Organized Health Care Education/Training Program; PCP Family Medicine
DX: K59.00 Constipation, unspecified (principal)
CPT/HCPCS: 93005; 99283; 93010

== ENCOUNTER 2023-01-12 21:09 | Emergency (ER) | payer OTHER, SELFPAY ==
[2023-01-12] VITALS (18 sets, daily range): BP systolic 90–166; BP diastolic 52–89; PULSE 59–87; RESP 13–24; TEMP 36; O2SAT 94–100
--- NOTE | 2023-01-12 21:00 | DI.CT_ITS ---
Exam(s) CT HEAD - STROKE PROTOCOL EXAM: CT HEAD - STROKE PROTOCOL CLINICAL HISTORY: AMS. TECHNIQUE: Imaging Protocol: Axial computed tomography images with coronal and sagittal reformatted images were created and reviewed COMPARISON: CT CT HEAD WO from 06/01/2018 FINDINGS: The examination is limited due to patient motion artifact. Ventricles and Extra axial spaces: Normal in size and morphology for the patient's age. Hemorrhage: None. Cerebral parenchyma: There is a 7 mm hyperdensity in the M1 segment of the left middle cerebral arter y. There is subtle hypodense area seen in the left temporal lobe and the left insular ribbon. The f indings are consistent with a very early infarct. Midline shift: None. Brainstem/Cerebellum: Normal. Calvarium: Normal. Visualized Paranasal sinuses/Mastoids: Clear. Soft Tissues: Unremarkable. IMPRESSION: Findings consistent with a left M1 hyperdense thrombus with very early sign of a left MCA distributio n stroke. RADIATION DOSE DELIVERED: Total DLP DATA REPOSITORY: All CT scans at this facility are submitted to the National Radiology Data Registry (NRDR) Dose Index Registry (DIR) with the [employer] (ACR). RADIATION OPTIMIZATION: All CT scans at this facility use at least one of these dose optimization te chniques: automated exposure control; mA and/or kV adjustment per patient size (includes targeted exa ms where dose is matched to clinical indication); or iterative reconstruction.
--- NOTE | 2023-01-12 21:00 | RT.EKG_ITS ---
APPROVED REPORT Exam: Resting ECG Reason for Exam: altered mental status Patient Location: E HR:63 bpm ECG Measurements Heart Rate 63 AXIS NC 162 P -24 QRSd 107 QRS -10 QT 448 T -21 QTc 458 Conclusion Sinus rhythm normal axis no acute ST segment changes
--- NOTE | 2023-01-12 21:15 | DI.CT_ITS ---
Exam(s) CT BRAIN NECK CTA EXAM: CT BRAIN NECK CTA CLINICAL HISTORY: stroke. TECHNIQUE: Imaging Protocol: Axial CT angiography was performed with multi-slice acquisition and mu lti-planar and/or 3D reconstructions. CONTRAST MATERIAL: Intravenous: Omnipaque 350 contrast volume:100 mL COMPARISON: CT ABD PELVIS WITH CONTRAST from 10/17/[address] HEAD WO from 06/01/[address] HEAD - STROKE PROTOCOL from 01/12/2023 FINDINGS: The noncontrast CT head was performed earlier in the day. The examination is limited due to patient motion artifact. CT Head w: Ventricles and Extra axial spaces: Normal in size and morphology for the patient's age. Hemorrhage: None. Cerebral parenchyma: There are subtle areas of decreased attenuation in the white matter in the left MCA distribution consistent with an early infarct. Midline shift: None. Brainstem/Cerebellum: Normal. Calvarium: Normal. Visualized Paranasal sinuses/Mastoids: Clear. Soft Tissues: Unremarkable. Enhancement: Unremarkable. CTA Neck W: Common Carotid: Right: No dissection, occlusion or significant stenosis. Left: No dissection, occlusion or significant stenosis. External Carotid: Right: No occlusion or significant stenosis. Left: No occlusion or significant stenosis. Internal Carotid: Right: No dissection, occlusion or significant stenosis. Minimal atherosclerosis at the origin of th e right internal carotid artery. Left: No dissection, occlusion or significant stenosis. Mild calcification is seen in the proximal l eft internal carotid artery. Vertebral Artery: Right: No dissection, occlusion or significant stenosis. There is a dominant right vertebral artery. Left: No dissection, occlusion or significant stenosis. Lung Apices: Mild centrilobular emphysematous changes are present. There is a 9 mm nodule in the rig ht upper lobe. Bones: Within normal limits for the patient's age. Soft Tissues: Normal. Thyroid gland: Unremarkable. CTA Brain W: Internal Carotid Arteries: There is mild atherosclerosis in the internal carotid arteries bilaterally . No significant stenosis, occlusion or aneurysm is seen. Anterior Cerebral Arteries: Right: No aneurysm, occlusion or significant stenosis. Left: No aneurysm, occlusion or significant stenosis. Middle Cerebral Arteries: Right: No aneurysm, occlusion or significant stenosis. Left: There is a filling defect seen in the mid M1 segment of the left MCA consistent with a thrombo embolism. Distal segments of the left middle cerebral artery are absent or poorly visualized. On th e 2 minutes delayed images there is return of flow distal to the left M1 segment via collaterals. Posterior Cerebral Arteries: Right: No aneurysm, occlusion or significant stenosis. Left: No aneurysm, occlusion or significant stenosis. Vertebral Arteries: Right: No aneurysm, occlusion or significant stenosis. Left: No aneurysm, occlusion or significant stenosis. The left vertebral segment ends at the PICA. Basilar Artery: No aneurysm, occlusion or significant stenosis. IMPRESSION: 1. 7 mm thromboembolism in the mid left M1 segment of the MCA. 2. Subtle area of decreased attenuation involving the left MCA distribution with loss of the insular ribbon consistent with an early infarct. 3. No occlusion or significant stenosis on the CT angiography of the neck. 4. 9 mm nodule in the right upper lobe of the lung. For both high and low risk patients, CT scan of the chest at 3 months, PET-CT or biopsy is recommended. (Kelton et al, 2017). RADIATION DOSE DELIVERED: Total DLP DATA REPOSITORY: All CT scans at this facility are submitted to the National Radiology Data Registry (NRDR) Dose Index Registry (DIR) with the [employer] (ACR). RADIATION OPTIMIZATION: All CT scans at this facility use at least one of these dose optimization te chniques: automated exposure control; mA and/or kV adjustment per patient size (includes targeted exa ms where dose is matched to clinical indication); or iterative reconstruction.
--- NOTE | 2023-01-12 21:16 | W.ED.GENAD ---
Discharge Plan Disposition Patient Disposition: Transfer-Acute Inpatient Care Specific Acute Inpt Facility: [facility] Condition: Critical Discharge Details Chief Complaint: GenMedical Clinical Impression: Acute ischemic left MCA stroke Primary Care Provider: Fatou Stokes ED Provider: Erika Todd Home Meds and New Rx's Prescriptions: No Action pramipexole 0.75 mg tablet 0.75 mg PO QHS Qty: 90 4RF Rx Instructions: take one tablet at bedtime pravastatin 20 mg tablet 20 mg PO QPM Qty: 90 3RF levothyroxine 88 mcg tablet 88 mcg PO DAILY Qty: 90 3RF bupropion HCl 75 mg tablet 75 mg PO DAILY Qty: 90 3RF sertraline 100 mg tablet 100 mg PO DAILY Qty: 90 3RF Medical Decision Making Emergent evaluation of altered mental status. Initial differential includes CVA, seizure, intoxication. On exam the patient has significant lateralizing symptoms. Stroke scale of 34. Patient taken immediately to CT imaging per stroke protocol 2117: CT imaging reviewed left hyperdense MCA noted consistent with patient's symptoms. Based on symptoms, CT imaging and last known normal, patient is a tPA candidate. Reviewed the medical record and medications listed, no anticoagulants. This has been ordered. I have began making arrangements for critical transport to stroke center. I will order a CTA to facilitate possible intervention. 2139: Discussed patient with neurology at [facility]. They concur with assessment and plan and have accepted the patient for transfer. Transportation services are not flying at this time secondary to the weather. Given the duration of the transport, I do not feel that the patient is adequately protecting her airway. I will intubate her for airway protection. 5: Patient intubated without complication. No focal consolidation, normal heart size, no pulmonary edema or pleural effusion reviewed with appropriate tube placement. OG tube placed. Cmumins placed. Transportation is here. is at bedside. is Warren Warren. His contact information is [phone] or [phone] Medical Records Medical records reviewed: Yes I reviewed the patient's medical records. Lab Data Lab results reviewed: Yes I reviewed the patient's lab results. ECG Data Attestation: I personally reviewed and interpreted this ECG (s) as follows: Prior ECG tracings: not available for review Interpretation: Sinus 63, normal axis, no acute ST segment changes HPI General Date/Time Provider Initiated Documentation: 01/12/23 21:16. Limitations to Documentation: altered mental status. Information obtained by: family () and EMS. HPI Narrative: 72-year-old female with past medical history of alcohol dependence, hypothyroidism presents for evaluation of altered mental status. She was last seen normal at 8 PM. Has been reports that at that time she was completely herself. They then went to bed. Shortly after going to bed the reports that she was thrashing and this woke him up. When he tried to talk to the patient, she was not responding to him so he called 911. EMS reports hypoxia on their arrival which improved with supplemental oxygen, normal blood pressure and normal Accu-Chek. Patient was not verbal with him. Related Data Home Medications Medication Instructions Recorded Confirmed bupropion HCl 75 mg tablet 75 mg PO DAILY #90 tabs 12/08/22 01/12/23 levothyroxine 88 mcg tablet 88 mcg PO DAILY #90 tabs 12/08/22 01/12/23 pramipexole 0.75 mg tablet 0.75 mg PO QHS #90 tabs 12/08/22 01/12/23 pravastatin 20 mg tablet 20 mg PO QPM #90 tabs 12/08/22 01/12/23 sertraline 100 mg tablet 100 mg PO DAILY #90 tabs 12/08/22 01/12/23 Previous Rx's Medication Instructions Recorded bupropion HCl 75 mg tablet 75 mg PO DAILY #90 tabs 12/08/22 levothyroxine 88 mcg tablet 88 mcg PO DAILY #90 tabs 12/08/22 pramipexole 0.75 mg tablet 0.75 mg PO QHS #90 tabs 12/08/22 pravastatin 20 mg tablet 20 mg PO QPM #90 tabs 12/08/22 sertraline 100 mg tablet 100 mg PO DAILY #90 tabs 12/08/22 Allergies Allergy/AdvReac Type Severity Reaction Status Date / Time No Known Allergies Allergy Verified 01/12/23 21:58 General Stated Complaint: GenMedical DULCE: 2 PFSH All Active Problems (Updated 01/12/23 @ 23:39 by Erika Todd MD) Acute ischemic left MCA stroke (Acute) Financial insecurity (Acute) Tobacco use disorder, continuous (Chronic) 55 pack yr hx; declines lung ca screening Anxiety (Chronic) Depression (Chronic) Hyperlipidemia (Chronic 11/03/11) Hypothyroidism (Chronic 02/22/14) RLS (restless legs syndrome) (Chronic) Chronic alcohol dependence, continuous (Chronic) 4-5 beers every other day. Medical History Abnormal weight loss (10/09/15) normal labs incl. SPEP/ CT abd-pelvic :duodenum+prx.small bowel irreg./inflamm. normal chest xray Micro.Hematuria: : cystoscopy pending normal colonoscopy gastroscopy : duod.inflamm. Microscopic hematuria (05/24/16) normal cystoscopy Surgical History Diverticulitis of large intestine without perforation or abscess without bleeding sigmoid resection + left fallopian tube and ovary (very adherent to colon); ; benign Tonsillectomy and adenoidectomy Oophrectomy, Left left tube and ovary; chronic salpingitis and colonic adhesions Hernia Repair, Incisional Laparoscopic EGD - MAC (09/28/16) Cystoscopy (06/10/16) normal Colonoscopy - MAC (09/28/16) Colectomy (~2010) partial colectomy (rectosigmoid obstruction/ ) Family History Mother No problems noted. Father No problems noted. Sister No problems noted. Sister No problems noted. Sister No problems noted. Brother No problems noted. Brother No problems noted. Brother No problems noted. Son , in 1997 Depression Son , 20 Depression Daughter No problems noted. Social History Smoking/Tobacco Use Status: Current every day Tobacco Type: cigarettes Years smoked: 55 Tobacco: How many years used: 55 Quit status: has quit before Second Hand Exposure: Yes Counseling given: provider counseling Smoking risk assessment performed?: Yes Alcohol Intake: current Alcohol Intake frequency: a few times a week Alcohol type: beer Drug use: Never Substance use type: does not use Caregiver/Support person: No Household members: spouse Housing: house Number of Children: 3 number of grandchildren: 8 Education Level: high school Details: finished through 11th grade Do you need help understanding health information?: Never current occupation: homemaker, worked in a farm; Pets and animals: Yes Pets and animals: cat(s) Sexually active: No Do you think of yourself as: straight/heterosexual What is your relationship status?: How often do you talk on the phone with friends or family?: once per week How often do you get together with friends or relatives?: once per week How often do you attend shinto or orthodoxy services?: decline to answer Do you belong to any clubs or organized social groups?: no Panel score (0-1 are the most socially isolated patients): 1 What type of physical activity do you participate in: none Traci/Denominational: No preference Special traci needs: No Seatbelt use: always Drive intox or ride w/intox bus driver/monitor: No Do you feel safe at home: Yes Do you feel safe in your relationship?: Yes Exam Narrative Exam Narrative: Review of Systems: All systems reviewed & are unremarkable except as noted in HPI and below: CONSTITUTIONAL: Alert Aphasic Well-developed HEENT: NACT EYES: PERRL, no conjunctival injection CVS: RRR, No murmurs or gallops. Peripheral pulses 2+ and equal in all extremities Brisk capillary refill in all extremities. No peripheral edema RESP: Pursed lip breathing, Clear to auscultation bilaterally No wheezes rales or rhonchi GI: Soft, Nontender, Nondistended, No organomegaly MSK: no deformity SKIN: Warm, Dry. Abrasion to the right lower extremity NEURO: Right-sided neglect, aphasia Withdraws to pain on the right upper and lower extremity Some localization and purposeful movement on the left side Course Vital Signs Vital signs: Vital Signs Temperature 36.0 C L 01/12/23 21:06 Pulse 70 01/12/23 21:06 Respiratory Rate 20 01/12/23 21:06 Blood Pressure 115/61 01/12/23 21:06 Pulse Oximetry 95 01/12/23 21:06 Temperature 36.0 C L 01/12/23 21:06 Temperature Source Temporal Artery Scan 01/12/23 21:06 Pulse 70 01/12/23 21:06 Respiratory Rate 20 01/12/23 21:06 Blood Pressure 115/61 01/12/23 21:06 Blood Pressure Position Supine 01/12/23 21:06 Pulse Oximetry 95 01/12/23 21:06 Oxygen Delivery Method Nasal Cannula 01/12/23 21:06 Oxygen Flow Rate 4 01/12/23 21:06 Pain Level 0 01/12/23 21:06 Procedures Intubation Time out performed: Yes sedative: Etomidate Mg Given: 20 paralytic: Succinylcholine Mg Given: 120 Laryngoscope: fiberoptic video scope Assist Device Used: fiberoptic device ET Tube Size: 7.5 Tube Secured Depth (cm): 21 Tube Secured Location: teeth Tube Placement Confirmation: visualized tube passing through cords, equal breath sounds bilaterally, no breath sounds over epigastrum and confirmation by capnometry Patient Tolerated Procedure: well and no complications Intubation Complications: none Critical Care Time Critical Care Time Critical Care Time: Yes Total Critical Care Time: 40 Attestation: CRITICAL CARE Upon my evaluation, this patient had a high probability of imminent or life-threatening deterioration due to CVA, respiratory failure which required my direct attention, intervention, and personal management. I have personally provided 40 minutes of critical care time exclusive of time spent on separately billable procedures. Time includes review of laboratory data, radiology results, discussion with consultants, and monitoring for potential decompensation. Interventions were performed as documented above
[2023-01-12 21:32] LABS: Abs Immature Grans 0.03 10^3/uL (0.0-0.06); Absolute Basophil Count 0.03 10^3/uL (0.0-0.2); Absolute Eosinophil Count 0.24 10^3/uL (0.0-0.7); Absolute Lymphocyte Count 1.61 10^3/uL (1.2-3.4); Absolute Monocyte Count 0.32 10^3/uL (0.1-0.8); Absolute Neutrophil Count 3.21 10^3/uL (1.2-6.7); Basophils % 0.6; Eosinophils % 4.4; HCT 40.5 % (36.0-46.0); Immature Grans % 0.6; Lymphocytes % 29.6; MCHC 32.1 % (32.0-36.0); MCV 90 fL (80-95); MPV 9.2 fL (8.0-11.0); Monocytes % 5.9; Neutrophils % 58.9; Platelet Count 219 10^3/uL (130-400); RBC 4.49 10^6/uL (3.93-5.22); RDW 12.6 % (11.7-14.6); RDW-SD 41.8 fL; WBC 5.44 10^3/uL (4.4-10.8)
[2023-01-12] MEDS: Omnipaque 350 MG/ML 100 ML BTL IJ (21:35)
[2023-01-12] MEDS: Normal Saline - Diluent 50 ML VIAL IV (21:35)
[2023-01-12] MEDS: Normal Saline Flush 10 ML SYR IVP (21:36)
[2023-01-12 21:42] LABS: Ammonia 11 umol/L (11-32)
--- NOTE | 2023-01-12 21:44 | DI.VRAD_ITS ---
Addendum created by Christian Swenson MD on 01/12/2023 9:54:26 PM EST: THIS REPORT CONTAINS FINDINGS THAT MAY BE CRITICAL TO PATIENT CARE. The findings were verbally communicated via telephone conference with CORRINE OCONNELL at 9:54 PM EST on 01/12/2023. The findings were acknowledged and understood. Addendum created by Christian Swenson MD on 01/12/2023 9:45:38 PM EST: Impression should read consistent with left M1 thromboembolus with very early sign of left MCA stroke. Initial report created on 01/12/2023 9:43:22 PM EST: PROCEDURE INFORMATION: Exam: CT Head Without Contrast Exam date and time: 01/12/2023 9:08 PM Age: 72 years old Clinical indication: Stroke-like symptoms; Altered mental status/memory loss and speech disturbance TECHNIQUE: Imaging protocol: Computed tomography of the head without contrast. Total images: 910 Other technique: STROKE PROTOCOL was implemented. COMPARISON: CT HEAD WO 06/01/2018 11:04 AM FINDINGS: Brain: No intra or extra-axial bleed. Loss of the left insular ribbon. Cortical ribbon and central dyer structures are otherwise preserved. Cerebral ventricles: No hydrocephalus. Basal cisterns are patent. Paranasal sinuses: No mucosal thickening or fluid levels. Mastoid air cells: Mastoid air cells are clear. Bones/joints: No significant bony abnormality. No fracture. Soft tissues: Unremarkable. Vasculature: 7 mm relatively dense left M1 segment. IMPRESSION: No acute intracranial abnormality. ASSESSMENT: ASPECTS ([place] Stroke Program Early CT Score) is 9. Dictated and Authenticated by: Christian Swenson MD. [facility]ing:[facility] Perez Vela MD
--- NOTE | 2023-01-12 22:00 | DI.RAD_ITS ---
Exam(s) XR PORTABLE CHEST AP EXAM: XR PORTABLE CHEST AP CLINICAL HISTORY: intubation placement TECHNIQUE: 2D digital imaging was performed of the chest. One image was obtained. An AP view was ob tained. COMPARISON: CR CHEST 2 VIEWS PA,LAT from 12/10/2015 FINDINGS: MEDIASTINUM: Normal. HEART: Normal. PULMONARY VASCULATURE: Normal. LUNGS: No focal consolidating infiltrates. The lungs are hyperlucent and hyperinflated suggesting un derlying COPD. PLEURAL SPACE: No pleural effusion or pneumothorax. BONE:Within normal limits for the patient's age. OTHER FINDINGS:The tip of the endotracheal tube is 4 cm above the yolanda in good position. The tip o f the enteric tube is seen in the stomach. IMPRESSION: 1. Endotracheal and enteric tubes are in good position. 2. No acute pulmonary process. DATA REPOSITORY: RADIATION DOSE DELIVERED:
[2023-01-12 22:02] LABS: ALT 15 U/L (14-59); AST 13 U/L (15-37); Albumin 2.9 g/dL (3.4-5.0); Alkaline Phosphatase 66 U/L (46-116); BUN 6 mg/dL (7-18); Bilirubin, Total 0.2 mg/dL (0.2-1.0); CREATININE 0.6 mg/dL (0.55-1.02); Calcium 9.1 mg/dL (8.5-10.1); Chloride 103 mmol/L (98-107); ETHANOL BLOOD 16.2 mg/dL (<10); Estimated GFR 95.31 (mL/min/1.73m2); Glucose 124 mg/dL (74-106); Magnesium 1.9 mg/dL (1.8-2.4); Potassium 3.6 mmol/L (3.5-5.1); Sodium 140 mmol/L (136-145); TSH (W/Ref FT4) 2.51 uIU/mL (0.36-3.74); Total Protein 6.6 g/dL (6.4-8.2)
[2023-01-12] MEDS: Etomidate 20 MG/10 ML VIAL IVP (22:06)
[2023-01-12] MEDS: Succinylcholine 200 MG/10 ML VIAL 100 MG IVP (22:07)
[2023-01-12 22:08] LABS: Prothrombin Time 10.1 sec (9.1-11.1)
[2023-01-12] MEDS: fentaNYL 1,000 MCG in Normal Saline 80 ML 4.305 MCG IV (22:14)
[2023-01-12] MEDS: Propofol 200 MG/20 ML VIAL 100 MG IVP (22:20)
[2023-01-12] MEDS: Propofol 200 MG/20 ML VIAL 50 MG IVP ×2 (22:30→22:38)
[2023-01-12] MEDS: PROPOFOL 500 MG/50 ML BTL IV (22:30)
--- NOTE | 2023-01-12 22:43 | DI.VRAD_ITS ---
PROCEDURE INFORMATION: Exam: CTA Head With Contrast, Arteriography Exam date and time: 01/12/2023 9:33 PM Age: 72 years old Clinical indication: Stroke-like symptoms; Altered mental status/memory loss TECHNIQUE: Imaging protocol: Computed tomographic angiography of the head with contrast. Exam focused on the arteries. 3D rendering (Not supervised by radiologist): MIP and/or 3D reconstructed images were created by the technologist. Total images: 1761 Contrast material: OMNI 350; Contrast volume: 100 ml; Contrast route: INTRAVENOUS (IV); COMPARISON: CT HEAD - STROKE PROTOCOL 01/12/2023 9:08 PM FINDINGS: ANTERIOR CIRCULATION: Right internal carotid artery: Mild stenosis cavernous segment right ICA. Right middle cerebral artery: No occlusion or significant stenosis. No aneurysm. Right anterior cerebral artery: No occlusion or significant stenosis. No aneurysm. Left internal carotid artery: Mild stenosis cavernous segment left ICA. Occlusion left carotid terminus. Left middle cerebral artery: Occlusion approximally 8 mm proximal segment left M1 segment. Poor reconstitution distal left M1 and M2 branches with absent opacification most left M3 and M4 branches. 2 minute delayed images demonstrate partial flow across the left M1 segment and improved flow in M2 and M3 branches via collaterals. Left anterior cerebral artery: Occluded proximal left A1 segment with collateral opacification on delayed images. POSTERIOR CIRCULATION: Right vertebral artery: No occlusion or significant stenosis. No aneurysm. Left vertebral artery: Non dominant/hypoplastic left V4 segment ends as the PICA. Basilar artery: No occlusion or significant stenosis. No aneurysm. Right posterior cerebral artery: No occlusion or significant stenosis. No aneurysm. Left posterior cerebral artery: No occlusion or significant stenosis. No aneurysm. Veins: No dural venous sinus thrombosis. Brain: No intracerebral enhancing lesion. Cerebral ventricles: No ventriculomegaly. Bones/joints: Unremarkable. No acute fracture. Soft tissues: Unremarkable. IMPRESSION: 1. Left-sided carotid T occlusion. 2. THIS REPORT CONTAINS FINDINGS THAT MAY BE CRITICAL TO PATIENT CARE. The findings were verbally communicated via telephone conference with CORRINE OCONNELL at 10:36 PM EST on 01/12/2023. The findings were acknowledged and understood. PROCEDURE INFORMATION: Exam: CTA Neck With Contrast Exam date and time: 01/12/2023 9:33 PM Age: 72 years old Clinical indication: Stroke-like symptoms; Altered mental status/memory loss TECHNIQUE: Imaging protocol: Computed tomographic angiography of the neck with contrast. Exam focused on the cervical segments of the vasculature. 3D rendering (Not supervised by radiologist): MIP and/or 3D reconstructed images were created by the technologist. Contrast material: OMNI 350; Contrast volume: 100 ml; Contrast route: INTRAVENOUS (IV); COMPARISON: CT HEAD - STROKE PROTOCOL 01/12/2023 9:08 PM FINDINGS: Right common carotid artery: No stenosis. No dissection or occlusion. Right internal carotid artery: No stenosis of the extracranial segment. No dissection or occlusion. Right external carotid artery: No occlusion or stenosis of the origin. Left common carotid artery: No stenosis. No dissection or occlusion. Left internal carotid artery: Calcified plaque narrows the proximal left ICA by approximately 50%. Left external carotid artery: No occlusion or stenosis of the origin. Right vertebral artery: No stenosis. No dissection or occlusion. Left vertebral artery: Non dominant left vertebral artery. Soft tissues: No significant soft tissue swelling. Bones/joints: Straightening of the cervical spine associated with mild multilevel degenerative disc disease and spondylosis including left foraminal spondylotic narrowing C5-C6 and C6-C7. Cervicothoracic S shaped scoliosis. Upper thoracic kyphosis. Lungs: 9 mm mildly irregular and spiculated nodule medially right upper lobe image 64 series 5. 5 mm right upper lobe nodule image 74 series 5. Mild centrilobular emphysema. Pleural spaces: Biapical pleural thickening. IMPRESSION: 1. 50% short-segment stenosis left ICA. 2. No right carotid stenosis. 3. Right upper lobe lung nodule including a 9 mm partially spiculated nodule.For both low risk and high risk patients, consider CT Chest at 3 months, PET/CT, or biopsy. (Reference: Henny) 4. THIS REPORT CONTAINS FINDINGS THAT MAY BE CRITICAL TO PATIENT CARE. The findings were verbally communicated via telephone conference with CORRINE OCONNELL at 10:39 PM EST on 01/12/2023. The findings were ac is knowledged and understood. REFERENCES: 1. Henny Aguila, et al. Guidelines for Management of Incidental Pulmonary Nodules Detected on CT Images: From the Fleischner Society 2017. Radiology. 2017;284(1):228-243. 2. NASCET CRITERIA. The degree of stenosis in the cervical segment of the internal carotid artery is based on NASCET criteria. Normal is no stenosis. Mild is less than 50% stenosis. Moderate is 50-69% stenosis. Severe is 70% to 99% stenosis. Total occlusion is no detectable patent lumen. Dictated and Authenticated by: Christian Swenson MD. Ordering:[facility] Perez Vela MD
[2023-01-12] MEDS: PROPOFOL 1,000 MG/100 ML BTL 0.1 MG (22:45)
[2023-01-12] MEDS: PROPOFOL 1,000 MG/100 ML BTL 0.037 MG IV (22:45)
[2023-01-12] MEDS: PROPOFOL 1,000 MG/100 ML BTL 1.845 MG IV (22:52)
--- NOTE | 2023-01-12 23:02 | DI.VRAD_ITS ---
PROCEDURE INFORMATION: Exam: XR Chest Exam date and time: 01/12/2023 10:27 PM Age: 72 years old Clinical indication: Other: AMS, intubation; Additional info: ? Stroke TECHNIQUE: Imaging protocol: Radiologic exam of the chest. Views: 1 view. Total images: 1 COMPARISON: CT BRAIN NECK CTA 01/12/2023 9:33 PM FINDINGS: Tubes, catheters and devices: Endotracheal tube in the midthoracic trachea 3.5 cm above the yolanda. NG tube within the stomach. Lungs: Lungs are hyperinflated and hyperlucent. No consolidation. No vascular congestion. Pulmonary jae: Unremarkable contours. Pleural spaces: No pleural effusion. No pneumothorax. Heart/Mediastinum: Unremarkable contours. No cardiomegaly. Bones/joints: Unremarkable. Intraperitoneal space: Visualized upper abdomen is unremarkable. IMPRESSION: 1. Successful endotracheal and NG tube placement. 2. COPD. 3. No pneumonia or CHF. Dictated and Authenticated by: Christian Swenson MD. Ordering:[facility] Perez Vela MD
--- NOTE | 2023-01-12 23:18 | NUR.NOTE ---
at 2225 OG tube was inserted. Tube was 75 at the teeth. ED MD confirmed placement with CXT Nursing Note:
--- NOTE | 2023-01-12 23:20 | NUR.NOTE ---
2232 16 fr crawford inserted. 700ml clear straw colored urine output. Nursing Note:
--- NOTE | 2023-01-12 23:44 | NUR.NOTE ---
[place] [facility] [place] Addie Dunn Note:
--- NOTE | 2023-01-15 07:35 | NUR.NOTE ---
Accessed pt chart to determine number of EKG orders. Duplicate order cancelled. Nursing Note:
== END 2023-01-12 22:45 | disposition short-term general hospital (02) ==
PROVIDERS: Emergency Provider Emergency Medicine; PCP Family Medicine
DX: I63.412 Cerebral infarction due to embolism of left middle cerebral artery (principal); R29.734 NIHSS score 34; R91.1 Solitary pulmonary nodule; E78.5 Hyperlipidemia, unspecified; E03.9 Hypothyroidism, unspecified; F10.20 Alcohol dependence, uncomplicated; F17.210 Nicotine dependence, cigarettes, uncomplicated
CPT/HCPCS: 31500; 36415; 51702; 70496; 70498; 80053; 93005; 99291; 70450; 71045; 80320; 82140; 83735; 84443; 84484; 85025; 85610; 85730; 93010; J2704; J2997; J3010; J3490

== ENCOUNTER 2023-06-21 08:46 | Outpatient (CLI) | payer MEDICARE, MEDICAID, SELFPAY | END 2023-06-21 08:47 | disposition home or self-care (01) | LOC: CARDOPNVT 08:46 | PROVIDERS: PCP Family Medicine; Visit Provider Family Medicine | DX: I69.352 Hemiplegia and hemiparesis following cerebral infarction affecting left dominant side | CPT/HCPCS: 93246 ==

== ENCOUNTER 2023-07-19 09:44 | Outpatient (CLI) | payer MEDICARE, MEDICAID, SELFPAY ==
--- NOTE | 2023-07-19 12:39 | W.CARDEVENT ---
Date of service: 07/19/23 Time of Service: 12:39 Cardiac Event Recorder Referring Provider:: Fatou Stokes Indications:: Cerebral infarction Cardiac Event Note: This is a cardiac event monitor. Patient was monitored for 12 days and 22 hours Rhythm throughout was sinus with an average heart rate of 85. Minimum was 56, maximum 131 There were very rare ventricular ectopic beats There were occasional atrial premature beats. Self-limited atrial runs occurred. The longest of these lasted 28 beats/ 10 seconds. Most were less than 5 beats in duration There was no atrial fibrillation, no high-grade AV block, no pauses greater than 3 seconds Patient's symptoms did not correlate to any dysrhythmia
== END 2023-07-19 09:45 | disposition home or self-care (01) ==
LOC: CARDOPNVT 09:44
PROVIDERS: PCP Family Medicine; Visit Provider Internal Medicine Cardiovascular Disease
DX: I63.512 Cerebral infarction due to unspecified occlusion or stenosis of left middle cerebral artery (principal); I49.1 Atrial premature depolarization
CPT/HCPCS: 93248

== ENCOUNTER 2023-07-27 05:28 | Outpatient (CLI) | payer MEDICARE, SELFPAY ==
[2023-07-27 12:36] LABS: Albumin 3.9 g/dL (3.4-5.0); Alkaline Phosphatase 88 U/L (46-116); BUN 13 mg/dL (7-18); Bilirubin, Total 0.5 mg/dL (0.2-1.0); CREATININE 0.7 mg/dL (0.55-1.02); Calcium 9.4 mg/dL (8.5-10.1); Calculated LDL 60 mg/dL (<100); Cholesterol 155 mg/dL (<200); Estimated GFR 91.26 (mL/min/1.73m2); Glucose 102 mg/dL (74-106); HDL Cholesterol 78 mg/dL (40-60); Potassium 4.4 mmol/L (3.5-5.1); Sodium 139 mmol/L (136-145); Total Protein 7.2 g/dL (6.4-8.2); Triglyceride 89 mg/dL (<150)
[2023-07-27 12:37] LABS: ALT 25 U/L (14-59); AST 20 U/L (15-37); Chloride 101 mmol/L (98-107); TSH (W/Ref FT4) 1.95 uIU/mL (0.36-3.74)
== END 2023-07-27 05:29 | disposition home or self-care (01) ==
LOC: LOS 05:28
PROVIDERS: PCP Family Medicine; Visit Provider Family Medicine
DX: Z13.6 Encounter for screening for cardiovascular disorders (principal); E78.5 Hyperlipidemia, unspecified; E03.9 Hypothyroidism, unspecified; Z00.00 Encounter for general adult medical examination without abnormal findings
CPT/HCPCS: 36415; 80053; 80061; 84443

== ENCOUNTER 2024-09-17 03:50 | Outpatient (CLI) | payer MEDICARE, SELFPAY ==
[2024-09-17 12:59] LABS: ALT 29 U/L (14-59); AST 19 U/L (15-37); Albumin 3.7 g/dL (3.4-5.0); Alkaline Phosphatase 94 U/L (46-116); Anion Gap 6.0 mmol/L (3-11); BUN 12 mg/dL (7-18); Bilirubin, Total 0.5 mg/dL (0.2-1.0); CO2 31.0 mmol/L (21.0-32.0); Calcium 9.0 mg/dL (8.5-10.1); Calculated LDL 48 mg/dL (<100); Chloride 103 mmol/L (98-107); Cholesterol 131 mg/dL (<200); Estimated GFR 90.70 (mL/min/1.73m2); Glucose 97 mg/dL (74-106); HDL Cholesterol 70 mg/dL (>or=50); Potassium 4.6 mmol/L (3.5-5.1); Sodium 140 mmol/L (136-145); TSH (W/Ref FT4) 0.85 uIU/mL (0.36-3.74); Total Protein 7.0 g/dL (6.4-8.2); Triglyceride 65 mg/dL (<150)
== END 2024-09-17 03:51 | disposition home or self-care (01) ==
PROVIDERS: PCP Family Medicine; Visit Provider Family Medicine
DX: E78.5 Hyperlipidemia, unspecified (principal); Z13.6 Encounter for screening for cardiovascular disorders; E03.9 Hypothyroidism, unspecified
CPT/HCPCS: 36415; 80053; 80061; 84443